=== PATIENT | female | born 1960 | race Caucasian/White ===

== ENCOUNTER 2023-10-28 10:11 | Observation (INO) ==
[2023-10-28] MEDS ORDERED: IOPAMIDOL 100 ML BOTTLE IV ONE (10:12)
[2023-10-28 11:53] LABS: Basophils # (Auto) 0.01 K/mcL (0.00-0.30); Basophils % (Auto) 0.1 % (0.0-2.0); Eosinophils # (Auto) 0.02 K/mcL (0.00-0.70); Eosinophils % (Auto) 0.3 % (0.0-7.0); Hematocrit 37.3 % (34.1-44.9); Lymphocytes # (Auto) 1.28 K/mcL (1.50-4.80); Mean Cell Volume 98.4 fL (80.0-100.0); Mean Corpuscular HGB Conc 32.2 g/dL (31.0-36.0); Mean Platelet Volume 10.1 fL (8.8-12.5); Monocytes # (Auto) 0.52 K/mcL (0.10-0.90); Monocytes % (Auto) 7.7 % (1.0-12.0); Neutrophils % (Auto) 72.6 % (38.0-78.0); Platelet Count 176 K/mcL (140-440); RBC 3.79 M/mcL (3.59-5.38); Red Cell Distribution Width 13.1 % (11.5-14.5); WBC 6.7 K/mcL (4.5-11.0)
[2023-10-28 12:19] LABS: ALT/SGPT 10 U/L (<40); AST/SGOT 21 U/L (<32); Albumin/Globulin Ratio 0.9 (1.0-2.3); Alkaline Phosphatase 64 U/L (39-117); Bilirubin,Total 0.5 mg/dL (0.1-1.0); Blood Urea Nitrogen 6 mg/dL (8-23); Calcium 8.7 mg/dL (8.6-10.4); Carbon Dioxide 25 mmol/L (22-30); Chloride 95 mmol/L (96-108); Globulin 3.4 gm/dL (2.2-3.7); Glomerular Filtration Rate 96; Glucose 84 mg/dL (70-105)
[2023-10-28 12:26] LABS: Appearance,Urine CLEAR (Clear); Bilirubin,Urine Negative (Negative); Color,Urine YELLOW; Culture Indicated,Urine No; Glucose,Urine (UA) Negative (Negative); Ketones,Urine 20 mg/dL (Negative); Leukocyte Esterase,Urine Negative /uL (Negative); Nitrate,Urine Negative (Negative); Protein,Urine Negative (Negative); Specific Gravity,Urine 1.013 (1.000-1.035); Urine Blood Negative (Negative); Urine RBC < 1 /hpf (0-3); Urine Squamous Epithelial Cell 1 /hpf (0-4); Urine WBC 0 /hpf (0-4)
[2023-10-28 12:40] LABS: Erythrocyte Sedimentation Rate 26 mm/hr (0-30)
[2023-10-28] MEDS ORDERED: ACETAMINOPHEN 325 MG TABLET PO ONE (15:58)
[2023-10-28] MEDS ORDERED: ONDANSETRON 4 MG ODT TABLET SL ONE ×2 (17:52→22:08)
[2023-10-29] MEDS ORDERED: HYDROcodone/APAP 10/325MG TABLET PO ONE (00:40)
[2023-10-29] MEDS ORDERED: GABAPENTIN 300 MG CAPSULE PO ONE (04:01)
[2023-10-29 16:19] LABS: Basophils # (Auto) 0.01 K/mcL (0.00-0.30); Basophils % (Auto) 0.2 % (0.0-2.0); Eosinophils # (Auto) 0.08 K/mcL (0.00-0.70); Eosinophils % (Auto) 1.7 % (0.0-7.0); Hematocrit 36.3 % (34.1-44.9); Hemoglobin 11.7 g/dL (11.2-15.7); Lymphocytes # (Auto) 1.34 K/mcL (1.50-4.80); Lymphocytes % (Auto) 28.8 % (15.5-49.0); Mean Cell Volume 97.1 fL (80.0-100.0); Mean Corpuscular HGB Conc 32.2 g/dL (31.0-36.0); Mean Platelet Volume 9.4 fL (8.8-12.5); Monocytes # (Auto) 0.39 K/mcL (0.10-0.90); Monocytes % (Auto) 8.4 % (1.0-12.0); Neutrophils % (Auto) 60.7 % (38.0-78.0); Platelet Count 153 K/mcL (140-440); RBC 3.74 M/mcL (3.59-5.38); Red Cell Distribution Width 13.2 % (11.5-14.5); WBC 4.7 K/mcL (4.5-11.0)
[2023-10-29 16:42] LABS: ALT/SGPT 6 U/L (<40); AST/SGOT 18 U/L (<32); Alkaline Phosphatase 60 U/L (39-117); Bilirubin,Total 0.4 mg/dL (0.1-1.0); Blood Urea Nitrogen 4 mg/dL (8-23); Calcium 8.4 mg/dL (8.6-10.4); Carbon Dioxide 27 mmol/L (22-30); Chloride 97 mmol/L (96-108); Glomerular Filtration Rate 96; Glucose 89 mg/dL (70-105)
[2023-10-29] MEDS ORDERED: SENNOSIDES 1 TABLET PO PRN (18:46)
[2023-10-29] MEDS ORDERED: IPRATROPIUM/ALBUTEROL 3 ML AMPUL.NEB NEB PRN (18:46)
[2023-10-29] MEDS ORDERED: ACETAMINOPHEN 325 MG TABLET PO PRN (18:46)
[2023-10-29] MEDS ORDERED: MAGNESIUM SULFATE 2 GM/50 ML BAG IV PRN (18:46)
[2023-10-29] MEDS ORDERED: DEXTROSE 31 GM ORAL.SUSP PO PRN (18:46)
[2023-10-29] MEDS ORDERED: POTASSIUM CHLORIDE 20 MEQ TABLET PO PRN ×2 (18:46)
[2023-10-29] MEDS ORDERED: POLYETHYLENE GLYCOL 3350 17 GM PACKET PO PRN (18:46)
[2023-10-29] MEDS ORDERED: POTASSIUM CHLORIDE 40 MEQ in DEXTROSE 5% IN WATER 500 ML IV PRN (18:46)
[2023-10-29] MEDS ORDERED: DEXTROSE 50% 50 ML VIAL IV PRN (18:46)
[2023-10-29] MEDS: INSULIN LISPRO 1 UNIT/0.01 ML UNIT SQ SCH ×2 (19:52→20:42)
[2023-10-29] MEDS: ONDANSETRON 4 MG/2 ML VIAL IV PRN (20:28)
[2023-10-29] MEDS ORDERED: oxyCODONE/APAP 5/325MG TABLET PO ONE (22:56)
[2023-10-29] MEDS: oxyCODONE/APAP 5/325MG TABLET PO PRN (22:57)
[2023-10-29] MEDS: 0.9 % SODIUM CHLORIDE 10 ML SYRINGE IV SCH (23:01)
[2023-10-30] MEDS: ONDANSETRON 4 MG/2 ML VIAL IV PRN ×3 (01:10→11:06)
[2023-10-30] MEDS ORDERED: oxyCODONE/APAP 5/325MG TABLET PO ONE (03:14)
[2023-10-30] MEDS: oxyCODONE/APAP 5/325MG TABLET PO PRN (03:17)
[2023-10-30] MEDS: 0.9 % SODIUM CHLORIDE 10 ML SYRINGE IV SCH (05:22)
[2023-10-30] MEDS ORDERED: oxyCODONE/APAP 5/325MG TABLET PO PRN (06:30)
[2023-10-30] MEDS: INSULIN LISPRO 1 UNIT/0.01 ML UNIT SQ SCH ×2 (07:22→12:09)
[2023-10-30] MEDS ORDERED: predniSONE 10 MG TABLET PO SCH (08:00)
[2023-10-30] MEDS ORDERED: ENOXAPARIN 40 MG/0.4 ML SYRINGE SQ SCH (09:00)
[2023-10-30] MEDS ORDERED: HYDROcodone/APAP 10/325MG TABLET PO PRN (10:15)
[2023-10-30] MEDS ORDERED: Olopatadine 0.1 % drops OU PRN (10:33)
[2023-10-30] MEDS ORDERED: tiZANidine 4 MG TABLET PO PRN (10:36)
[2023-10-30] MEDS ORDERED: GABAPENTIN 300 MG CAPSULE PO SCH (15:00)
[2023-10-30] MEDS ORDERED: ATORVASTATIN 10 MG TABLET PO SCH (21:00)
[2023-10-30] MEDS ORDERED: PROPRANOLOL 10 MG TABLET PO SCH (21:00)
[2023-10-30] MEDS ORDERED: LATANOPROST OPHTH DROPS 2.5ML BOTTLE OU SCH (21:00)
[2023-10-30] MEDS ORDERED: BACLOFEN 10 MG TABLET PO SCH (21:00)
[2023-10-31] MEDS ORDERED: OMEPRAZOLE 20 MG CAPSULE PO SCH (07:30)
[2023-10-31] MEDS ORDERED: ASPIRIN 81 MG TAB.CHEW PO SCH (09:00)
[2023-10-31] MEDS ORDERED: DULoxetine 30 MG CAPSULE PO SCH (09:00)
[2023-10-31] MEDS ORDERED: SENNOSIDES 1 TABLET PO SCH (09:00)
[2023-10-31] MEDS ORDERED: LEVOTHYROXINE 50 MCG TABLET PO SCH (09:00)
[2023-10-31] MEDS ORDERED: LACTOBACILLUS 1 CAPSULE PO SCH (09:00)
[2023-10-31] MEDS ORDERED: LISINOPRIL 20 MG TABLET PO SCH (09:00)
[2023-10-31] MEDS ORDERED: metFORMIN 500 MG TAB.XL.24H PO SCH (09:00)
[2023-10-31] MEDS ORDERED: predniSONE 10 MG TABLET PO SCH (09:00)
== END 2023-10-30 12:15 ==
LOC: ED 10:11 → MEDSUR 10:11
PROVIDERS: ADMIT Internal Medicine; ATTEND Internal Medicine